=== PATIENT | male | born 1965 | race Caucasian/White ===

== ENCOUNTER 2023-04-20 15:56 | Outpatient (CLI) | payer OTHER, SELFPAY | END 2023-04-20 15:57 | disposition home or self-care (01) | LOC: KYNREF 15:58 | PROVIDERS: PCP Nurse Practitioner Family; Visit Provider Nurse Practitioner Family | DX: Z00.00 Encounter for general adult medical examination without abnormal findings (principal); E78.5 Hyperlipidemia, unspecified; K74.60 Unspecified cirrhosis of liver | CPT/HCPCS: 80053 ==

== ENCOUNTER 2023-08-10 13:18 | Outpatient (CLI) | payer OTHER, SELFPAY | END 2023-08-10 13:19 | disposition home or self-care (01) | PROVIDERS: PCP Nurse Practitioner Family; Visit Provider Nurse Practitioner Family | DX: R42 Dizziness and giddiness (principal); R00.2 Palpitations; K70.31 Alcoholic cirrhosis of liver with ascites | CPT/HCPCS: 80053; 81015; 84443; 85025; 85610; 85730; 87086 ==

== ENCOUNTER 2023-08-14 08:43 | Outpatient (CLI) | payer OTHER, SELFPAY | END 2023-08-14 08:44 | disposition home or self-care (01) | LOC: RAD 08:44 | PROVIDERS: PCP Nurse Practitioner Family; Visit Provider Nurse Practitioner Family | DX: R00.2 Palpitations (principal) | CPT/HCPCS: 93225; 93226 ==

== ENCOUNTER 2024-12-23 13:40 | Outpatient (CLI) | payer MEDICAID, SELFPAY | END 2024-12-23 13:41 | disposition home or self-care (01) | PROVIDERS: PCP Nurse Practitioner Family; Visit Provider Nurse Practitioner Family | DX: E78.5 Hyperlipidemia, unspecified (principal); K70.31 Alcoholic cirrhosis of liver with ascites | CPT/HCPCS: 80053; 80061; 85025 ==

== ENCOUNTER 2024-12-30 09:08 | Outpatient (CLI) | payer MEDICAID, SELFPAY ==
--- NOTE | 2024-12-30 09:15 | CRLHL7_ITS ---
For Patients: As a result of the Century Cures Act, medical imaging exams and procedure reports are released immediately into your electronic medical record. You may view this report before your referring provider. If you have questions, please contact your health care provider. Indication: RLQ abdominal mass Technique: Grayscale and color Doppler ultrasound of the right lower abdominal wall soft tissues performed. Comparison: None Findings: Circumscribed collection of fluid within the subcutaneous tissues measures 4.0 x 1.1 x 3.1 cm. No internal vascularity. Impression: Circumscribed cyst within the right lower quadrant lateral abdominal wall soft tissues measures 4.0 x 1.1 x 3.1 cm. Dictated by Jaxon Bacon MD @ 12/30/2024 7:54:39 PM (Electronically Signed)
== END 2024-12-30 09:09 | disposition home or self-care (01) ==
LOC: US 09:10
PROVIDERS: PCP Nurse Practitioner Family; Visit Provider Nurse Practitioner Family
DX: R19.03 Right lower quadrant abdominal swelling, mass and lump (principal)
CPT/HCPCS: 76705

== ENCOUNTER 2025-08-19 14:38 | Outpatient (CLI) | payer OTHER, SELFPAY | END 2025-08-19 14:39 | disposition home or self-care (01) | PROVIDERS: PCP Nurse Practitioner Family; Visit Provider Nurse Practitioner Family | DX: Z13.21 Encounter for screening for nutritional disorder (principal) | CPT/HCPCS: 82306; 82607 ==